=== PATIENT | female | born 1940 | race Caucasian/White ===

== ENCOUNTER → 2018-08-18 | Day surgery (SDC) | payer MEDICARE, OTHER ==
[~2018-08-18] MED LIST: LACTATED RINGERS 1,000 ML IV SCH; LIDOCAINE 1% 20 ML VIAL (10MG/ML) FOR IV START INTRADERMA PRN; LIDOCAINE 1% INJ 10MG/ML (20 ML MDV) ONE; PROPOFOL 10 MG/ML 20 ML VIAL IV ONE
[2018-08-18 10:22] VITALS: RESP 16; TEMP 97.8
--- NOTE | 2018-08-18 10:44 | P.GSHP ---
History of Present Illness H&P Date: 08/18/18 Chief Complaint: GERD, dysphagia This a 78-year-old female who presents today for EGD. She's had issues with GERD and dysphagia. Past Medical History Past Medical History: Eye Disorder, GERD/Reflux, Hyperlipidemia, Hypertension, Thyroid Disorder Additional Past Medical History / Comment(s): BILAT GLAUCOMA. HIATAL HERNIA History of Any Multi-Drug Resistant Organisms: None Reported Past Surgical History: Heart Catheterization With Stent, Joint Replacement Additional Past Surgical History / Comment(s): RT TKA. COLONOSCOPY. BILAT CATARACT SX. BILAT EYE SX FOR GLAUCOMA Past Anesthesia/Blood Transfusion Reactions: No Reported Reaction Date of Last Stent Placement:: 2004 Smoking Status: Never smoker - Past Family History Mother Family Medical History: No Reported History Medications and Allergies Home Medications Medication Instructions Recorded Confirmed Type Aspirin EC [Ecotrin Low Dose] 81 mg PO DAILY 08/14/18 08/14/18 History Calcium Citrate/Vitamin D3 1 each PO DAILY 08/14/18 08/14/18 History [Calcitrate + Vit D Caplet] Latanoprost [Xalatan 0.005%] 1 drop BOTH EYES DAILY 08/14/18 08/14/18 History Levothyroxine Sodium [Synthroid] 75 mcg PO DAILY 08/14/18 08/14/18 History Metoprolol Succinate (ER) [Toprol 50 mg PO DAILY 08/14/18 08/14/18 History Xl] Multivitamins, Thera [Multivitamin 1 each PO DAILY 08/14/18 08/14/18 History (formulary)] Pantoprazole Sodium [Protonix] 40 mg PO HS 08/14/18 08/14/18 History Pravastatin Sodium [Pravachol] 40 mg PO MOWEFR 08/14/18 08/14/18 History amLODIPine [Norvasc] 2.5 mg PO DAILY 08/14/18 08/14/18 History Allergies Allergy/AdvReac Type Severity Reaction Status Date / Time ranitidine AdvReac Itching Verified 08/18/18 10:04 Surgical - Exam Vital Signs Temp Pulse Resp BP Pulse Ox 97.8 F 65 16 181/78 99 08/18/18 10:20 08/18/18 10:20 08/18/18 10:20 08/18/18 10:20 08/18/18 10:20 - General well developed, no distress - Eyes PERRL - ENT normal pinna - Neck no masses - Respiratory normal expansion - Cardiovascular Rhythm: regular - Abdomen Abdomen: soft, non tender Assessment and Plan Assessment: GERD, dysphagia. We'll perform EGD.
--- NOTE | 2018-08-18 10:50 | P.OP ---
Date of Procedure: 08/18/18 Preoperative Diagnosis: GERD Dysphagia Postoperative Diagnosis: Mild antral gastritis Mild esophagitis Procedure(s) Performed: EGD Anesthesia: MAC Surgeon: Shade Haywood Pathology: other (Antral, esophagus) Condition: stable Disposition: PACU Description of Procedure: The patient's placed on the endoscopy table in the lateral position. She received IV sedation. The gastroscope placed oropharynx passed in the esophagus and into the stomach. Scope was then placed through the pylorus. First and second portion of the duodenum appeared normal. The scope was then brought back the antrum was mildly inflamed. A biopsies was performed. The scope was retroflexed and remainder stomach appeared normal. There is no significant hiatal hernia. The GE junction was at 39 cm the distal esophagus appeared minimally inflamed a biopsies performed. The proximal esophagus. Normal. Scope was withdrawn for patient. There is no evidence of any esophageal or gastric obstruction.
[2018-08-18 11:23] VITALS: BP 160/80; PULSE 61
--- NOTE | 2018-08-18 14:43 | NM ---
Nuclear medicine hepatobiliary scan. HISTORY: Pain. DOSAGE: The patient received 8 ounces of ensure plus and 4.7 mCi of Technetium 99m Choletec. FINDINGS: There is normal hepatic extraction. The gallbladder is seen by 45 minutes. There is bilia ry to bowel clearance by 20 minutes. Ejection fraction is 91%. IMPRESSION: 1. Normal filling of gallbladder with radiotracer. 2. Ejection fraction is 91%. This can occasionally be seen with hyperdynamic gallbladder correlate cl inically
== END | disposition home or self-care (01) ==
LOC: ORWHC2ENDO 09:50
PROVIDERS: ATTEND Surgery
DX: K29.50 Unspecified chronic gastritis without bleeding (principal); K21.0 Gastro-esophageal reflux disease with esophagitis; E07.9 Disorder of thyroid, unspecified; E78.5 Hyperlipidemia, unspecified; I25.10 Atherosclerotic heart disease of native coronary artery without angina pectoris; H40.9 Unspecified glaucoma; I10 Essential (primary) hypertension; Z79.82 Long term (current) use of aspirin; Z79.899 Other long term (current) drug therapy; Z96.651 Presence of right artificial knee joint; Z95.5 Presence of coronary angioplasty implant and graft; Z79.890 Hormone replacement therapy; Z88.8 Allergy status to other drugs, medicaments and biological substances
CPT/HCPCS: 88305; 78226; 43239; A9537; J2001; J2704

== ENCOUNTER 2018-09-01 06:23 | Day surgery (SDC) | payer MEDICARE, OTHER ==
[2018-08-28 09:33] VITALS: BMI 30.2
[~2018-09-01 06:23] MED LIST changes: +DEXAMETHASONE SOD PHOSPHATE 10 MG/ML 1 ML VIAL IV ONE; +HEPARIN SODIUM,PORCINE 5,000 UNIT/ML 1 ML VIAL SQ ONE; +HYDROmorphone 0.5 MG/0.5 ML SYRINGE IVP PRN; -LIDOCAINE 1% INJ 10MG/ML (20 ML MDV) ONE; +MIDAZOLAM 2 MG/2 ML VIAL IV PRN; +ONDANSETRON 4 MG/2 ML VIAL IVP ONE; -PROPOFOL 10 MG/ML 20 ML VIAL IV ONE; +ceFAZolin IN SWFI 2 GM/20 ML SYRINGE IVP ONE; +fentaNYL (PF) 50 MCG/ML 2 ML AMP IV PRN
[2018-09-01] MEDS ORDERED: LACTATED RINGERS 1,000 ML IV ONE ×3 (06:52→08:33)
[2018-09-01] MEDS ORDERED: GLYCOPYRROLATE 0.2 MG/ML 2 ML VIAL ONE ×2 (07:56)
[2018-09-01] MEDS ORDERED: ROCURONIUM BROMIDE 10 MG/ML 10 ML VIAL IV ONE (07:56)
[2018-09-01] MEDS ORDERED: SUCCINYLCHOLINE CHLORIDE 100 MG/5 ML SYR IV ONE (07:56)
[2018-09-01] MEDS ORDERED: PROPOFOL 10 MG/ML 20 ML VIAL IV ONE (07:56)
[2018-09-01] MEDS ORDERED: LIDOCAINE 1% INJ 10MG/ML (20 ML MDV) ONE (07:56)
[2018-09-01] MEDS ORDERED: fentaNYL (PF) 50 MCG/ML 2 ML AMP ONE (07:56)
[2018-09-01] MEDS ORDERED: NEOSTIGMINE 1 MG/ML 10 ML VIAL ONE (07:56)
[2018-09-01] MEDS ORDERED: ePHEDrine SULFATE/0.9% NACL/PF 50 MG/5 ML SYRINGE IV ONE (07:56)
--- NOTE | 2018-09-01 08:16 | P.GSHP ---
History of Present Illness H&P Date: 09/01/18 Chief Complaint: Epigastric and right upper quadrant pain This a 70-year-old female referred from Dr. Joyce Gramajo. Patient presents today for laparoscopic cholecystectomy. She's had complaints of epigastric and right quadrant pain. Her recent HIDA scan shows a hyperkinetic gallbladder consistent with biliary hypokinesis and chronic cholecystitis. Past Medical History Past Medical History: Eye Disorder, GERD/Reflux, Hyperlipidemia, Hypertension, Thyroid Disorder Additional Past Medical History / Comment(s): BILAT GLAUCOMA. HIATAL HERNIA History of Any Multi-Drug Resistant Organisms: None Reported Past Surgical History: Heart Catheterization With Stent, Joint Replacement Additional Past Surgical History / Comment(s): RIGHT KNEE REPLACEMENT. COLONOSCOPY. BILAT CATARACT SX. BILAT EYE SX FOR GLAUCOMA Past Anesthesia/Blood Transfusion Reactions: No Reported Reaction Date of Last Stent Placement:: 2004 Past Psychological History: No Psychological Hx Reported Smoking Status: Never smoker Past Alcohol Use History: None Reported Past Drug Use History: None Reported - Past Family History Mother Family Medical History: No Reported History Medications and Allergies Home Medications Medication Instructions Recorded Confirmed Type Aspirin EC [Ecotrin Low Dose] 81 mg PO DAILY 08/14/18 08/28/18 History Calcium Citrate/Vitamin D3 1 each PO DAILY 08/14/18 08/28/18 History [Calcitrate + Vit D Caplet] Latanoprost [Xalatan 0.005%] 1 drop BOTH EYES DAILY 08/14/18 08/28/18 History Levothyroxine Sodium [Synthroid] 75 mcg PO QAM 08/14/18 08/28/18 History Metoprolol Succinate (ER) [Toprol 50 mg PO 1200 08/14/18 08/28/18 History Xl] Multivitamins, Thera [Multivitamin 1 each PO DAILY 08/14/18 08/28/18 History (formulary)] Pantoprazole Sodium [Protonix] 40 mg PO HS 08/14/18 08/28/18 History Pravastatin Sodium [Pravachol] 40 mg PO MOWEFR 08/14/18 08/28/18 History amLODIPine [Norvasc] 2.5 mg PO 1200 08/14/18 08/28/18 History Allergies Allergy/AdvReac Type Severity Reaction Status Date / Time ranitidine AdvReac Itching Verified 01/24/19 09:18 Surgical - Exam Vital Signs Temp Pulse Resp BP Pulse Ox 97.8 F 61 18 173/74 95 09/01/18 06:39 09/01/18 06:39 09/01/18 06:39 09/01/18 06:39 09/01/18 06:39 - General well developed, no distress - Eyes PERRL - ENT normal pinna - Neck no masses - Cardiovascular Rhythm: regular - Abdomen Abdomen: soft, non tender Assessment and Plan Assessment: When quadrant pain Chronically says We'll perform laparoscopic cholecystectomy.
[2018-09-01] MEDS ORDERED: BUPIVACAIN-EPI 0.5%-1:200,000 30 ML VIAL SQ ONE (08:32)
[2018-09-01 09:01] VITALS: TEMP 97.3
--- NOTE | 2018-09-01 09:22 | P.OP ---
Date of Procedure: 09/01/18 Preoperative Diagnosis: Cholecystitis Postoperative Diagnosis: Cholecystitis Procedure(s) Performed: Laparoscopic cholecystectomy Anesthesia: MELANI Surgeon: Shade Haywood Estimated Blood Loss (ml): 5 Pathology: other (Gallbladder) Condition: stable Disposition: PACU Description of Procedure: The patient was placed on the operating table. The patient received a general endotracheal tube anesthesia. The patients abdomen was prepped and draped in the usual sterile fashion. Through an infraumbilical stab incision, the fascia of the anterior abdominal wall was grasped with a pair of Kochers and then the Veress needle was placed in the peritoneal cavity. Position of the Veress needle was confirmed with positive drop test. The abdomen was then insufflated. After adequate insufflation, the 10 mm trocar was placed in the peritoneal cavity. Following this the laparoscope was placed in the peritoneal cavity. The patient was placed in the head-up, right side up position and then a 5 mm trocar was placed in the right lateral and right subcostal position under direct visualization. A 8 mm trocar was placed in the epigastric position. The gallbladder was grasped in the fundus and infundibulum. Traction on the gallbladder was placed in the lateral and the cephalad positions. The triangle of Calot was visualized.. The cystic duct was bluntly dissected until the union of the cystic duct and common bile duct was seen. The cystic duct was then divided and sealed with the Harmonic scissors. A PDS Endoloop was then placed throughout the cystic duct stump. The cystic artery divided and sealed with the Harmonic scissors. The gallbladder was then removed from the liver bed using Harmonic scissors. The gallbladder was then extracted through the epigastric port site. Operative field was checked for any bleeding spots and Harmonic scissors was used to coagulate the liver bed. The abdomen was irrigated. The trocars were removed. The skin was closed using interrupted 3-0 Vicryl suture. Dermabond dressing were applied. The patient tolerated the procedure well.
[2018-09-01 10:47] VITALS: RESP 16
[2018-09-01 11:00] VITALS: BP 121/78; PULSE 63
== END 2018-09-01 11:41 | disposition home or self-care (01) ==
LOC: OR 06:23
PROVIDERS: ATTEND Surgery
DX: K80.10 Calculus of gallbladder with chronic cholecystitis without obstruction (principal); K29.70 Gastritis, unspecified, without bleeding; I25.10 Atherosclerotic heart disease of native coronary artery without angina pectoris; K21.9 Gastro-esophageal reflux disease without esophagitis; I10 Essential (primary) hypertension; E78.5 Hyperlipidemia, unspecified; E07.9 Disorder of thyroid, unspecified; Z79.82 Long term (current) use of aspirin; Z79.899 Other long term (current) drug therapy; Z96.651 Presence of right artificial knee joint; Z88.8 Allergy status to other drugs, medicaments and biological substances; Z95.5 Presence of coronary angioplasty implant and graft; Z79.890 Hormone replacement therapy
CPT/HCPCS: 47562; J1644; J1100; J2710; J2405; J2001; J3010; J0330; J2704; J0690; 88304

== ENCOUNTER 2019-03-06 19:35 | Inpatient (IN) | payer MEDICARE, OTHER ==
[2019-03-06 21:01] LABS: HCT 43.7 % (34.0-46.0); HGB 14.4 gm/dL (11.4-16.0); MCH 30.2 pg (25.0-35.0); MCHC 32.9 g/dL (31.0-37.0); MCV 91.8 fL (80.0-100.0); Mean Platelet Volume 8.6; Platelet Count 241 k/uL (150-450); RBC 4.76 m/uL (3.80-5.40); RDW 15.2 % (11.5-15.5); WBC 10.6 k/uL (3.8-10.6)
[2019-03-06 21:05] LABS: Albumin 3.8 g/dL (3.5-5.0); Calcium 9.6 mg/dL (8.4-10.2); Potassium 4.2 mmol/L (3.5-5.1); Total Bilirubin 0.8 mg/dL (0.2-1.3)
[2019-03-06 21:15] LABS: INR 0.9 (<1.2); Prothrombin Time 9.8 sec (9.0-12.0)
[2019-03-06 21:21] LABS: Partial Thromboplastin Time 21.5 sec (22.0-30.0)
[2019-03-06 21:25] LABS: Eosinophils # (M) 2.76 k/uL (0-0.7); Large Platelets Present; Lymphocytes # (M) 2.86 k/uL (1.0-4.8); Monocytes # (M) 0.85 k/uL (0-1.0); Neutrophils % (M) 39 %; Nucleated Red Blood Cells 0 /100 WBC (0-0); Total Cells Counted 100
--- NOTE | 2019-03-06 22:21 | CT ---
EXAM: CT Abdomen and Pelvis With Intravenous Contrast CLINICAL HISTORY: rectal bleeding TECHNIQUE: Axial computed tomography images of the abdomen and pelvis with intravenous contrast. CTDI is 0.085, 0.085, 8.7, 9.1 mGy and DLP is 780. 9 mGy-cm. This CT exam was performed using one or more of the following dose reduction techniques: automated exposure control, adjustment of the mA and/or kV according to patient size, and/or use of iterative reconstruction technique. COMPARISON: No relevant prior studies available. FINDINGS: Lung bases: Unremarkable. Mediastinum: Small hiatal hernia. ABDOMEN: Liver: Liver is upper limits of normal in size. Gallbladder and bile ducts: Gallbladder is absent. Pancreas: Unremarkable. Spleen: Unremarkable. Adrenals: Unremarkable. Kidneys and ureters: Small fluid attenuating right renal lesion, likely cysts. No hydronephrosis. Stomach and bowel: Mild haziness surrounding the underdistended descending colon is compatible with nonspecific colitis. Small bowel is nondilated. Colonic diverticulosis without focal inflammatory change. PELVIS: Appendix: Not identified. No pericecal inflammatory change. Bladder: Unremarkable. Reproductive: Small calcified uterine fibroid. ABDOMEN and PELVIS: Intraperitoneal space: Unremarkable. No free air. Bones/joints: No acute osseous abnormality. Degenerative changes of the spine. Soft tissues: Small fat-containing periumbilical hernia. Vasculature: Aortic atherosclerosis. No abdominal aortic aneurysm. Lymph nodes: Unremarkable. IMPRESSION: Mild haziness surrounding the underdistended descending colon is compatible with nonspecific colitis.
--- NOTE | 2019-03-06 23:21 | ED ---
Nausea/Vomiting/Diarrhea HPI - General Chief complaint: Nausea/Vomiting/Diarrhea Stated complaint: rectal bleeding Time Seen by Provider: 03/06/19 19:45 Source: patient Mode of arrival: ambulatory Limitations: no limitations - History of Present Illness Initial comments: Patient is a 78-year-old female presents to the emergency room with report of bright red blood per rectum. She reports that around 5 PM yesterday she began having abdominal cramping. She did go to the bathroom and had multiple episodes of bright red blood within the toilet bowl. No history of similar in the past. She isn't taking anything for her pain. She did awake this morning and continued to have multiple episodes of bright red blood in the bowl. She admits to associated nausea but no vomiting. She denies any abnormal vaginal bleeding or discharge. She denies any dysuria, hematuria or difficulty voiding. She denies any constipation or melanotic stools. States that she is strictly passing blood. She last had a colonoscopy in 2011 and it was normal. She does admit to a history of diverticulosis. She is not on any blood thinners. Denies any syncope or presyncope. No fevers or chills. There are no other alleviating, precipitating or modifying factors. - Related Data Home Medications Medication Instructions Recorded Confirmed Calcium Citrate/Vitamin D3 1 tab PO DAILY 08/14/18 03/06/19 [Calcitrate + Vit D Caplet] Latanoprost [Xalatan 0.005%] 1 drop BOTH EYES HS 08/14/18 03/06/19 Levothyroxine Sodium [Synthroid] 75 mcg PO QAM 08/14/18 03/06/19 Metoprolol Succinate (ER) [Toprol 50 mg PO DAILY 08/14/18 03/06/19 XL] Multivitamins, Thera [Multivitamin 1 tab PO DAILY 08/14/18 03/06/19 (formulary)] Pravastatin Sodium [Pravachol] 40 mg PO MOWEFR 08/14/18 03/06/19 amLODIPine [Norvasc] 2.5 mg PO DAILY 08/14/18 03/06/19 Timolol 0.5% Ophth Soln [Timoptic 1 drop BOTH EYES DAILY 03/06/19 03/06/19 0.5% Ophth Soln] Previous Rx's Medication Instructions Recorded Amoxic-Pot Clav 875-125Mg 1 tab PO BID 4 Days #8 tab 03/09/19 [Augmentin 875-125] Aspirin EC [Ecotrin Low Dose] 81 mg PO DAILY #0 03/09/19 Pantoprazole Sodium [Protonix] 40 mg PO DAILY #30 tablet. 03/09/19 metroNIDAZOLE [Flagyl] 500 mg PO Q8HR #12 tab 03/09/19 Allergies Allergy/AdvReac Type Severity Reaction Status Date / Time ranitidine AdvReac Itching Verified 03/06/19 20:26 Review of Systems ROS Statement: Those systems with pertinent positive or pertinent negative responses have been documented in the HPI. ROS Other: All systems not noted in ROS Statement are negative. Past Medical History Past Medical History: Eye Disorder, GERD/Reflux, Hyperlipidemia, Hypertension, Thyroid Disorder Additional Past Medical History / Comment(s): BILAT GLAUCOMA. HIATAL HERNIA History of Any Multi-Drug Resistant Organisms: None Reported Past Surgical History: Heart Catheterization With Stent, Joint Replacement Additional Past Surgical History / Comment(s): RIGHT KNEE REPLACEMENT. COLONOSCOPY. BILAT CATARACT SX. BILAT EYE SX FOR GLAUCOMA Past Anesthesia/Blood Transfusion Reactions: No Reported Reaction Date of Last Stent Placement:: 2004 Past Psychological History: No Psychological Hx Reported Smoking Status: Never smoker Past Alcohol Use History: None Reported Past Drug Use History: None Reported - Past Family History Mother Family Medical History: No Reported History General Exam Limitations: no limitations General appearance: alert, in no apparent distress Head exam: Present: atraumatic, normocephalic, normal inspection Eye exam: Present: normal appearance, PERRL, EOMI. Absent: scleral icterus, co njunctival injection, periorbital swelling ENT exam: Present: normal exam, mucous membranes moist Neck exam: Present: normal inspection. Absent: tenderness, meningismus, lymphadenopathy Respiratory exam: Present: normal lung sounds bilaterally. Absent: respiratory distress, wheezes, rales, rhonchi, stridor Cardiovascular Exam: Present: regular rate, normal rhythm, normal heart sounds. Absent: systolic murmur, diastolic murmur, rubs, gallop, clicks GI/Abdominal exam: Present: soft, normal bowel sounds. Absent: distended, tenderness, guarding, rebound, rigid Rectal exam: Present: heme (+) stool, bloody stool Extremities exam: Present: normal inspection, full ROM, normal capillary refill. Absent: tenderness, pedal edema, joint swelling, calf tenderness Back exam: Present: normal inspection Neurological exam: Present: alert, oriented X3, CN II-XII intact Psychiatric exam: Present: normal affect, normal mood Skin exam: Present: warm, dry, intact, normal color. Absent: rash Course Vital Signs 03/06/19 03/06/19 03/07/19 19:40 22:57 00:21 Temperature 98.4 F 98.7 F Pulse Rate 75 68 72 Respiratory 18 18 18 Rate Blood Pressure 133/84 144/67 133/82 O2 Sat by Pulse 95 97 95 Oximetry Procedures - Stool Hemoccult Hemoccult result: positive Medical Decision Making - Medical Decision Making Upon arrival the patient is placed into room 18. She is hooked to continuous pulse ox and cardiac monitoring. A thorough history and physical exam was performed. Peripheral IV was established. I did offer something for pain control however the patient refused. I did recommend laboratory studies and a CT of the patient's abdomen and pelvis. A rectal exam was performed which did demonstrate gross blood. Upon return of the results I did discuss them with the patient. I did recommend hospital admission to continue to trend the patient's hemoglobin which the patient did agree. Blood cultures were obtained. I did start her on Rocephin and Flagyl. The patient will be admitted to Dr. Gonsalez. I did call and discuss the case with him and he did accept the admission. He requests that I consult Dr. Merchant. She was made nothing by mouth. I did order Protonix and antiemetics. The patient remained in stable condition was was transported to the floor in hemodynamically stable condition. - Differential Diagnosis acute GIB, internal hemorrhoids, diverticulitis - Lab Data Result diagrams: 03/08/19 08:54 03/06/19 20:41 Lab Results 03/06/19 03/06/19 03/06/19 Range/Units 20:41 20:41 20:41 WBC 10.6 (3.8-10.6) k/uL RBC 4.76 (3.80-5.40) m/uL Hgb 14.4 (11.4-16.0) gm/dL Hct 43.7 (34.0-46.0) % MCV 91.8 (80.0-100.0) fL MCH 30.2 (25.0-35.0) pg MCHC 32.9 (31.0-37.0) g/dL RDW 15.2 (11.5-15.5) % Plt Count 241 (150-450) k/uL Neutrophils % (Manual) 39 % Lymphocytes % (Manual) 27 % Monocytes % (Manual) 8 % Eosinophils % (Manual) 26 % Neutrophils # (Manual) 4.13 (1.3-7.7) k/uL Lymphocytes # (Manual) 2.86 (1.0-4.8) k/uL Monocytes # (Manual) 0.85 (0-1.0) k/uL Eosinophils # (Manual) 2.76 H (0-0.7) k/uL Nucleated RBCs 0 (0-0) /100 WBC Manual Slide Review Performed Large Platelets Present PT (9.0-12.0) sec INR (<1.2) APTT (22.0-30.0) sec Sodium 140 (137-145) mmol/L Potassium 4.2 (3.5-5.1) mmol/L Chloride 105 (98-107) mmol/L Carbon Dioxide 26 (22-30) mmol/L Anion Gap 9 mmol/L BUN 19 H (7-17) mg/dL Creatinine 0.77 (0.52-1.04) mg/dL Est GFR (CKD-EPI)AfAm 86 (>60 ml/min/1.73 sqM) Est GFR (CKD-EPI)NonAf 74 (>60 ml/min/1.73 sqM) Glucose 98 (74-99) mg/dL Plasma Lactic Acid Kong 1.3 (0.7-2.0) mmol/L Calcium 9.6 (8.4-10.2) mg/dL Magnesium 2.0 (1.6-2.3) mg/dL Total Bilirubin 0.8 (0.2-1.3) mg/dL AST 32 (14-36) U/L ALT 18 (9-52) U/L Alkaline Phosphatase 78 (38-126) U/L Total Protein 7.0 (6.3-8.2) g/dL Albumin 3.8 (3.5-5.0) g/dL Lipase 93 (23-300) U/L Urine Color Urine Appearance (Clear) Urine pH (5.0-8.0) Ur Specific [place] (1.001-1.035) Urine Protein (Negative) Urine Glucose (UA) (Negative) Urine Ketones (Negative) Urine Blood (Negative) Urine Nitrite (Negative) Urine Bilirubin (Negative) Urine Urobilinogen (<2.0) mg/dL Ur Leukocyte Esterase (Negative) Urine RBC (0-5) /hpf Urine WBC (0-5) /hpf Ur Squamous Epith Cells (0-4) /hpf Urine Mucus (None) /hpf Stool Occult Blood (Negative) Blood Type Blood Type Confirm Blood Type Recheck Antibody Screen Spec Expiration Date 03/06/19 03/06/19 03/06/19 Range/Units 20:41 20:41 20:41 WBC (3.8-10.6) k/uL RBC (3.80-5.40) m/uL Hgb (11.4-16.0) gm/dL Hct (34.0-46.0) % MCV (80.0-100.0) fL MCH (25.0-35.0) pg MCHC (31.0-37.0) g/dL RDW (11.5-15.5) % Plt Count (150-450) k/uL Neutrophils % (Manual) % Lymphocytes % (Manual) % Monocytes % (Manual) % Eosinophils % (Manual) % Neutrophils # (Manual) (1.3-7.7) k/uL Lymphocytes # (Manual) (1.0-4.8) k/uL Monocytes # (Manual) (0-1.0) k/uL Eosinophils # (Manual) (0-0.7) k/uL Nucleated RBCs (0-0) /100 WBC Manual Slide Review Large Platelets PT 9.8 (9.0-12.0) sec INR 0.9 (<1.2) APTT 21.5 L (22.0-30.0) sec Sodium (137-145) mmol/L Potassium (3.5-5.1) mmol/L Chloride (98-107) mmol/L Carbon Dioxide (22-30) mmol/L Anion Gap mmol/L BUN (7-17) mg/dL Creatinine (0.52-1.04) mg/dL Est GFR (CKD-EPI)AfAm (>60 ml/min/1.73 sqM) Est GFR (CKD-EPI)NonAf (>60 ml/min/1.73 sqM) Glucose (74-99) mg/dL Plasma Lactic Acid Kong (0.7-2.0) mmol/L Calcium (8.4-10.2) mg/dL Magnesium (1.6-2.3) mg/dL Total Bilirubin (0.2-1.3) mg/dL AST (14-36) U/L ALT (9-52) U/L Alkaline Phosphatase (38-126) U/L Total Protein (6.3-8.2) g/dL Albumin (3.5-5.0) g/dL Lipase (23-300) U/L Urine Color Urine Appearance (Clear) Urine pH (5.0-8.0) Ur Specific [place] (1.001-1.035) Urine Protein (Negative) Urine Glucose (UA) (Negative) Urine Ketones (Negative) Urine Blood (Negative) Urine Nitrite (Negative) Urine Bilirubin (Negative) Urine Urobilinogen (<2.0) mg/dL Ur Leukocyte Esterase (Negative) Urine RBC (0-5) /hpf Urine WBC (0-5) /hpf Ur Squamous Epith Cells (0-4) /hpf Urine Mucus (None) /hpf Stool Occult Blood Positive H (Negative) Blood Type A Positive Blood Type Confirm Blood Type Recheck CABO Indicated Antibody Screen NEGATIVE Spec Expiration Date 03/09/2019 - 234003/06/19 03/06/19 Range/Units 21:26 22:58 WBC (3.8-10.6) k/uL RBC (3.80-5.40) m/uL Hgb (11.4-16.0) gm/dL Hct (34.0-46.0) % MCV (80.0-100.0) fL MCH (25.0-35.0) pg MCHC (31.0-37.0) g/dL RDW (11.5-15.5) % Plt Count (150-450) k/uL Neutrophils % (Manual) % Lymphocytes % (Manual) % Monocytes % (Manual) % Eosinophils % (Manual) % Neutrophils # (Manual) (1.3-7.7) k/uL Lymphocytes # (Manual) (1.0-4.8) k/uL Monocytes # (Manual) (0-1.0) k/uL Eosinophils # (Manual) (0-0.7) k/uL Nucleated RBCs (0-0) /100 WBC Manual Slide Review Large Platelets PT (9.0-12.0) sec INR (<1.2) APTT (22.0-30.0) sec Sodium (137-145) mmol/L Potassium (3.5-5.1) mmol/L Chloride (98-107) mmol/L Carbon Dioxide (22-30) mmol/L Anion Gap mmol/L BUN (7-17) mg/dL Creatinine (0.52-1.04) mg/dL Est GFR (CKD-EPI)AfAm (>60 ml/min/1.73 sqM) Est GFR (CKD-EPI)NonAf (>60 ml/min/1.73 sqM) Glucose (74-99) mg/dL Plasma Lactic Acid Kong (0.7-2.0) mmol/L Calcium (8.4-10.2) mg/dL Magnesium (1.6-2.3) mg/dL Total Bilirubin (0.2-1.3) mg/dL AST (14-36) U/L ALT (9-52) U/L Alkaline Phosphatase (38-126) U/L Total Protein (6.3-8.2) g/dL Albumin (3.5-5.0) g/dL Lipase (23-300) U/L Urine Color Yellow Urine Appearance Clear (Clear) Urine pH 7.0 (5.0-8.0) Ur Specific [place] >1.050 H (1.001-1.035) Urine Protein Negative (Negative) Urine Glucose (UA) Negative (Negative) Urine Ketones Negative (Negative) Urine Blood Negative (Negative) Urine Nitrite Negative (Negative) Urine Bilirubin Negative (Negative) Urine Urobilinogen <2.0 (<2.0) mg/dL Ur Leukocyte Esterase Moderate H (Negative) Urine RBC 3 (0-5) /hpf Urine WBC 7 H (0-5) /hpf Ur Squamous Epith Cells 7 H (0-4) /hpf Urine Mucus Rare H (None) /hpf Stool Occult Blood (Negative) Blood Type Blood Type Confirm A Positive Blood Type Recheck Antibody Screen Spec Expiration Date Disposition Clinical Impression: Acute colitis, Rectal bleeding Disposition: ADMITTED IP TO THIS [facility] Condition: Stable Is patient prescribed a controlled substance at d/c from ED?: No Decision to Admit Reason: Admit from EC Decision Date: 03/06/19 Decision Time: 23:22
[2019-03-06] MEDS ORDERED: ONDANSETRON 4 MG/2 ML VIAL IVP PRN (23:24)
[2019-03-06] MEDS ORDERED: NALOXONE 0.4 MG/ML 1 ML VIAL IV PRN (23:24)
[2019-03-06] MEDS ORDERED: cefTRIAXone IN SWFI 1,000 MG/10 ML SYRINGE IVP STA (23:25)
[2019-03-06] MEDS ORDERED: metroNIDAZOLE-NS PMX 500 MG in SALINE 1 100ML.BAG IVPB STA (23:26)
[2019-03-06 23:29] LABS: Appearance,Urine Clear (Clear); Bilirubin,Urine Negative (Negative); Blood,Urine Negative (Negative); Color,Urine Yellow; Glucose,Urine (UA) Negative (Negative); Ketones,Urine Negative (Negative); Leukocyte Esterase,Urine Moderate (Negative); Mucus,Urine Rare /hpf; Nitrite,Urine Negative (Negative); Protein,Urine Negative (Negative); RBC,Urine 3 /hpf (0-5); Squamous Epithelial Cell,Urine 7 /hpf (0-4); Urobilinogen,Urine <2.0 mg/dL (<2.0)
[2019-03-06] MEDS ORDERED: cefTRIAXone IN SWFI 1,000 MG/10 ML SYRINGE IVP SCH (23:30)
[2019-03-06 23:54] LABS: Specific Gravity,Urine >1.050 (1.001-1.035)
[2019-03-07] MEDS: PANTOPRAZOLE 40 MG/10 ML VIAL IV SCH ×2 (00:06→10:01)
[2019-03-07] MEDS: LEVOTHYROXINE 75 MCG TAB PO SCH (06:17)
--- NOTE | 2019-03-07 08:54 | P.GSCN ---
History of Present Illness Consult date: 03/07/19 Reason for Consult: Rectal bleeding History of present illness: This is a 78-year-old female who is minimal hospital last night. Patient compl ains of rectal bleeding. She describes bloody bowel movements. She states she's had no further bloody bowel movements this morning. Her last colonoscopy was approximately 9 years ago. CAT scan performed yesterday shows evidence of possible nonspecific colitis of the descending colon Past Medical History Past Medical History: Eye Disorder, GERD/Reflux, Hyperlipidemia, Hypertension, Thyroid Disorder Additional Past Medical History / Comment(s): BILAT GLAUCOMA. HIATAL HERNIA History of Any Multi-Drug Resistant Organisms: None Reported Past Surgical History: Heart Catheterization With Stent, Joint Replacement Additional Past Surgical History / Comment(s): RIGHT KNEE REPLACEMENT. COLONOSCOPY. BILAT CATARACT SX. BILAT EYE SX FOR GLAUCOMA Past Anesthesia/Blood Transfusion Reactions: No Reported Reaction Date of Last Stent Placement:: 2004 Past Psychological History: No Psychological Hx Reported Smoking Status: Never smoker Past Alcohol Use History: None Reported Past Drug Use History: None Reported - Past Family History Mother Family Medical History: No Reported History Medications and Allergies Home Medications Medication Instructions Recorded Confirmed Type Aspirin EC [Ecotrin Low Dose] 81 mg PO DAILY 08/14/18 03/06/19 History Calcium Citrate/Vitamin D3 1 tab PO DAILY 08/14/18 03/06/19 History [Calcitrate + Vit D Caplet] Latanoprost [Xalatan 0.005%] 1 drop BOTH EYES HS 08/14/18 03/06/19 History Levothyroxine Sodium [Synthroid] 75 mcg PO QAM 08/14/18 03/06/19 History Metoprolol Succinate (ER) [Toprol 50 mg PO DAILY 08/14/18 03/06/19 History Xl] Multivitamins, Thera [Multivitamin 1 tab PO DAILY 08/14/18 03/06/19 History (formulary)] Pravastatin Sodium [Pravachol] 40 mg PO MOWEFR 08/14/18 03/06/19 History amLODIPine [Norvasc] 2.5 mg PO DAILY 08/14/18 03/06/19 History Timolol 0.5% Ophth Soln [Timoptic 1 drop BOTH EYES DAILY 03/06/19 03/06/19 History 0.5% Ophth Soln] Allergies Allergy/AdvReac Type Severity Reaction Status Date / Time ranitidine AdvReac Itching Verified 03/06/19 20:26 Surgical - Exam Vital Signs Temp Pulse Resp BP Pulse Ox 98.4 F 75 18 133/84 95 03/06/19 19:40 03/06/19 19:40 03/06/19 19:40 03/06/19 19:40 03/06/19 19:40 - General well developed, well nourished, no distress - Eyes PERRL - ENT normal pinna - Neck no masses - Respiratory normal expansion - Cardiovascular Rhythm: regular - Abdomen Abdomen: soft, non tender Hernia: umbilical Results - Labs 03/06/19 20:41 03/06/19 20:41 Abnormal Lab Results - Last 24 Hours (Table) 03/06/19 03/06/19 03/06/19 Range/Units 20:41 20:41 20:41 Eosinophils # (Manual) 2.76 H (0-0.7) k/uL APTT (22.0-30.0) sec BUN 19 H (7-17) mg/dL Ur Specific [place] (1.001-1.035) Ur Leukocyte Esterase (Negative) Urine WBC (0-5) /hpf Ur Squamous Epith Cells (0-4) /hpf Urine Mucus (None) /hpf Stool Occult Blood Positive H (Negative) 03/06/19 03/06/19 Range/Units 20:41 22:58 Eosinophils # (Manual) (0-0.7) k/uL APTT 21.5 L (22.0-30.0) sec BUN (7-17) mg/dL Ur Specific [place] >1.050 H (1.001-1.035) Ur Leukocyte Esterase Moderate H (Negative) Urine WBC 7 H (0-5) /hpf Ur Squamous Epith Cells 7 H (0-4) /hpf Urine Mucus Rare H (None) /hpf Stool Occult Blood (Negative) Diabetes panel 03/06/19 Range/Units 20:41 Sodium 140 (137-145) mmol/L Potassium 4.2 (3.5-5.1) mmol/L Chloride 105 (98-107) mmol/L Carbon Dioxide 26 (22-30) mmol/L BUN 19 H (7-17) mg/dL Creatinine 0.77 (0.52-1.04) mg/dL Glucose 98 (74-99) mg/dL Calcium 9.6 (8.4-10.2) mg/dL AST 32 (14-36) U/L ALT 18 (9-52) U/L Alkaline Phosphatase 78 (38-126) U/L Total Protein 7.0 (6.3-8.2) g/dL Albumin 3.8 (3.5-5.0) g/dL Calcium panel 03/06/19 Range/Units 20:41 Calcium 9.6 (8.4-10.2) mg/dL Albumin 3.8 (3.5-5.0) g/dL Pituitary panel 03/06/19 Range/Units 20:41 Sodium 140 (137-145) mmol/L Potassium 4.2 (3.5-5.1) mmol/L Chloride 105 (98-107) mmol/L Carbon Dioxide 26 (22-30) mmol/L BUN 19 H (7-17) mg/dL Creatinine 0.77 (0.52-1.04) mg/dL Glucose 98 (74-99) mg/dL Calcium 9.6 (8.4-10.2) mg/dL Adrenal panel 03/06/19 Range/Units 20:41 Sodium 140 (137-145) mmol/L Potassium 4.2 (3.5-5.1) mmol/L Chloride 105 (98-107) mmol/L Carbon Dioxide 26 (22-30) mmol/L BUN 19 H (7-17) mg/dL Creatinine 0.77 (0.52-1.04) mg/dL Glucose 98 (74-99) mg/dL Calcium 9.6 (8.4-10.2) mg/dL Total Bilirubin 0.8 (0.2-1.3) mg/dL AST 32 (14-36) U/L ALT 18 (9-52) U/L Alkaline Phosphatase 78 (38-126) U/L Total Protein 7.0 (6.3-8.2) g/dL Albumin 3.8 (3.5-5.0) g/dL Assessment and Plan Assessment: Lower GI bleed. Possible descending colon colitis. Patient will be observed. She'll undergo colonoscopy on Saturday. She may be discharged home tomorrow if she has no further bleeding.
[2019-03-07] MEDS: SODIUM CHLORIDE 0.9% 1,000 ML IV SCH ×2 (09:52)
[2019-03-07] MEDS: metroNIDAZOLE-NS PMX 500 MG in SALINE 1 100ML.BAG IVPB SCH ×2 (09:54→16:31)
[2019-03-07] MEDS: amLODIPine 2.5 MG TAB PO SCH (10:00)
[2019-03-07] MEDS: METOPROLOL SUCCINATE (ER) 50 MG TAB.ER.24H PO SCH (10:00)
[2019-03-07] MEDS: TIMOLOL 0.5% OPHTH DROPS 5 ML BTL BOTH EYES SCH (10:02)
--- NOTE | 2019-03-07 11:03 | P.HPIM ---
History of Present Illness H&P Date: 03/07/19 Chief Complaint: Rectal bleed Jazmin Castellon is a 78 yo F with PMH significant for HTN, HLD, OA, GERD. She presented to [facility] ED after passing a multiple bloody bowel movements over the past 2 days. She states on noticed abdominal cramping and discomfort which persisted for about an hour, then passed loose bloody stool. She had another episode yesterday morning so came in to the ED. She denies loss of appetite, fever, chills, nausea or vomiting. No melena. Her bowel movements at baseline are every 1-2 days and regular. She last had colonoscopy in 2011 which was normal with the exception of diverticulosis. In the ED vitals stable, WBC 10, FOBT positive, CT abd/pelvis with nonspecific colitis of descending colon. Pt has had no further bloody stools since admission. Review of Systems All systems: negative Constitutional: Reports malaise, Denies chills, Denies fever Eyes: denies blurred vision, denies pain Ears, nose, mouth and throat: Denies headache, Denies sore throat Cardiovascular: Denies chest pain, Denies shortness of breath Respiratory: Denies cough Gastrointestinal: Reports hematochezia, Reports loss of appetite, Denies abdominal pain, Denies constipation, Denies diarrhea, Denies melena, Denies nausea, Denies vomiting Genitourinary: Denies dysuria, Denies hematuria Musculoskeletal: Denies myalgias Integumentary: Denies pruritus, Denies rash Neurological: Denies numbness, Denies weakness Psychiatric: Denies anxiety, Denies depression Endocrine: Denies fatigue, Denies weight change Past Medical History Past Medical History: Eye Disorder, GERD/Reflux, Hyperlipidemia, Hypertension, Thyroid Disorder Additional Past Medical History / Comment(s): BILAT GLAUCOMA. HIATAL HERNIA History of Any Multi-Drug Resistant Organisms: None Reported Past Surgical History: Heart Catheterization With Stent, Joint Replacement Additional Past Surgical History / Comment(s): RIGHT KNEE REPLACEMENT. COLONOSCOPY. BILAT CATARACT SX. BILAT EYE SX FOR GLAUCOMA Past Anesthesia/Blood Transfusion Reactions: No Reported Reaction Date of Last Stent Placement:: 2004 Past Psychological History: No Psychological Hx Reported Smoking Status: Never smoker Past Alcohol Use History: None Reported Past Drug Use History: None Reported - Past Family History Mother Family Medical History: No Reported History Medications and Allergies Home Medications Medication Instructions Recorded Confirmed Type Aspirin EC [Ecotrin Low Dose] 81 mg PO DAILY 08/14/18 03/06/19 History Calcium Citrate/Vitamin D3 1 tab PO DAILY 08/14/18 03/06/19 History [Calcitrate + Vit D Caplet] Latanoprost [Xalatan 0.005%] 1 drop BOTH EYES HS 08/14/18 03/06/19 History Levothyroxine Sodium [Synthroid] 75 mcg PO QAM 08/14/18 03/06/19 History Metoprolol Succinate (ER) [Toprol 50 mg PO DAILY 08/14/18 03/06/19 History Xl] Multivitamins, Thera [Multivitamin 1 tab PO DAILY 08/14/18 03/06/19 History (formulary)] Pravastatin Sodium [Pravachol] 40 mg PO MOWEFR 08/14/18 03/06/19 History amLODIPine [Norvasc] 2.5 mg PO DAILY 08/14/18 03/06/19 History Timolol 0.5% Ophth Soln [Timoptic 1 drop BOTH EYES DAILY 03/06/19 03/06/19 H istory 0.5% Ophth Soln] Allergies Allergy/AdvReac Type Severity Reaction Status Date / Time ranitidine AdvReac Itching Verified 03/06/19 20:26 Physical Exam Vitals: Vital Signs Temp Pulse Pulse Resp BP BP Pulse Ox 03/07/19 07:03 98.1 F 69 16 145/80 94 L 03/07/19 01:14 97.9 F 65 18 126/73 95 03/07/19 00:21 98.7 F 72 18 133/82 95 03/06/19 22:57 68 18 144/67 97 03/06/19 19:40 98.4 F 75 18 133/84 95 Intake and Output 03/06/19 03/07/19 03/07/19 22:59 06:59 14:59 Other: Weight 70.307 kg Constitutional: well developed, well nourished, no apparent distress Head: normocephalic, atraumatic ENT: TMs clear, posterior pharynx without erythema Neck: supple, no thyromegaly or JVD Lungs: normal respiratory effort, no rales, rhonchi or wheezing CV: regular rate and rhythm, no murmur. Pulses 2+ Abd: soft, non distended, no organomegaly. LLQ TTP Ext: no cyanosis, clubbing, or edema Neuro: alert and oriented x3, CN II-XII intact Skin: warm and dry Results CBC & Chem 7: 03/06/19 20:41 03/06/19 20:41 Labs: Abnormal Lab Results - Last 24 Hours (Table) 03/06/19 03/06/19 03/06/19 Range/Units 20:41 20:41 20:41 Eosinophils # (Manual) 2.76 H (0-0.7) k/uL APTT (22.0-30.0) sec BUN 19 H (7-17) mg/dL Ur Specific [place] (1.001-1.035) Ur Leukocyte Esterase (Negative) Urine WBC (0-5) /hpf Ur Squamous Epith Cells (0-4) /hpf Urine Mucus (None) /hpf Stool Occult Blood Positive H (Negative) 03/06/19 03/06/19 Range/Units 20:41 22:58 Eosinophils # (Manual) (0-0.7) k/uL APTT 21.5 L (22.0-30.0) sec BUN (7-17) mg/dL Ur Specific [place] >1.050 H (1.001-1.035) Ur Leukocyte Esterase Moderate H (Negative) Urine WBC 7 H (0-5) /hpf Ur Squamous Epith Cells 7 H (0-4) /hpf Urine Mucus Rare H (None) /hpf Stool Occult Blood (Negative) Thrombosis Risk Factor Assmnt - Choose All That Apply Each Risk Factor Represents 3 Points: Age 75 years or older Thrombosis Risk Factor Assessment Total Risk Factor Score: 3 Thrombosis Risk Factor Assessment Level: Moderate Risk Assessment and Plan (1) Acute colitis Current Visit: Yes Status: Acute Code(s): K52.9 - NONINFECTIVE GASTROENTERITIS AND COLITIS, UNSPECIFIED SNOMED Code(s): 16818138 (2) Rectal bleeding Current Visit: Yes Status: Acute Code(s): K62.5 - HEMORRHAGE OF ANUS AND RECTUM SNOMED Code(s): 08963296 (3) Hypertension Current Visit: Yes Status: Acute Code(s): I10 - ESSENTIAL (PRIMARY) HYPERTEN ASHANTI SNOMED Code(s): 97461563 Plan: 1. Rectal bleed. Hgb stable, continue to monitor. General surgery consulted and plan for colonoscopy Saturday. If Hgb remains stable plan for dc tomorrow 2. Colitis. With LLQ tenderness. Question early diverticulitis. Continue rocephin and flagyl 3. HTN continue norvasc GI prophylaxis: protonix
[2019-03-07] MEDS ORDERED: ACETAMINOPHEN TAB 325 MG TAB PO PRN (20:14)
[2019-03-07] MEDS ORDERED: LATANOPROST 0.005% OPHTH DROPS 2.5 ML BTL BOTH EYES SCH (21:00)
[2019-03-08] MEDS: SODIUM CHLORIDE 0.9% 1,000 ML IV SCH ×3 (02:33→10:31)
[2019-03-08] MEDS: metroNIDAZOLE-NS PMX 500 MG in SALINE 1 100ML.BAG IVPB SCH ×3 (02:34→18:41)
[2019-03-08] MEDS: LEVOTHYROXINE 75 MCG TAB PO SCH (06:24)
[2019-03-08 09:11] LABS: HCT 42.1 % (34.0-46.0); HGB 13.5 gm/dL (11.4-16.0); MCV 93.5 fL (80.0-100.0); Mean Platelet Volume 8.1; Platelet Count 244 k/uL (150-450); RBC 4.51 m/uL (3.80-5.40); RDW 14.4 % (11.5-15.5); WBC 7.9 k/uL (3.8-10.6)
--- NOTE | 2019-03-08 10:11 | P.PN ---
Progress Note - Text Progress Note Date: 03/08/19 The patient developed some left-sided abdominal pain last night. She had a bowel movement yesterday. She denies any blood in her stool yesterday. On exam her vital signs are stable. Her abdomen soft. There is some mild left- sided tenderness. Patient will be scheduled for colonoscopy in the a.m. She'll perform bowel prep today.
[2019-03-08] MEDS: LATANOPROST 0.005% OPHTH DROPS 2.5 ML BTL BOTH EYES SCH (10:36)
[2019-03-08] MEDS: TIMOLOL 0.5% OPHTH DROPS 5 ML BTL BOTH EYES SCH (10:37)
[2019-03-08] MEDS: amLODIPine 2.5 MG TAB PO SCH (10:43)
[2019-03-08] MEDS: PANTOPRAZOLE 40 MG/10 ML VIAL IV SCH (10:43)
[2019-03-08] MEDS: METOPROLOL SUCCINATE (ER) 50 MG TAB.ER.24H PO SCH (10:43)
[2019-03-08] MEDS ORDERED: PEG 3350-NA SULF,BICARB,CL/KCL 4,000 ML BOTTLE PO ONE (12:00)
--- NOTE | 2019-03-08 15:47 | P.PN ---
Subjective Progress Note Date: 03/08/19 Jazmin Castellon is a 78 yo F with PMH significant for HTN, HLD, OA, GERD. She presented to [facility] ED after passing a multiple bloody bowel movements over the past 2 days. She states on noticed abdominal cramping and discomfort which persisted for about an hour, then passed loose bloody stool. She had another episode yesterday morning so came in to the ED. She denies loss of appetite, fever, chills, nausea or vomiting. No melena. Her bowel movements at baseline are every 1-2 days and regular. She last had colonoscopy in 2011 which was normal with the exception of diverticulosis. In the ED vitals stable, WBC 10, FOBT positive, CT abd/pelvis with nonspecific colitis of descending colon. Pt has had no further bloody stools since admission. 03/08. She tolerated her diet well yesterday and has had further BM without any cristina blood. She continues to complain of some L sided abdominal pain. Her WBC are down to 7 from 10 yesterday. Objective - Vital Signs Vital signs: Vital Signs Temp 97.5 F L 03/08/19 15:07 Pulse 60 03/08/19 15:07 Resp 16 03/08/19 15:07 BP 170/84 03/08/19 15:07 Pulse Ox 100 03/08/19 15:07 Intake & Output 03/07/19 03/08/19 03/08/19 18:59 06:59 18:59 Intake Total 1500 800 Output Total 1400 1100 1400 Balance 100 -1100 -600 Intake: Intake, IV Titration 750 Amount Sodium Chloride 0.9% 1, 650 000 ml @ 100 mls/hr IV . Q10H [facility] Rx#:[id number] metroNIDAZOLE-NS PMX 500 100 mg In Saline 1 100ml.bag @ 100 mls/hr IVPB Q8HR [facility] Rx#:[id number] Oral 750 800 Output: Urine 1400 1100 1400 Other: # Voids 2 1 # Bowel Movements 1 - Exam General: well developed, NAD CV: RRR, no murmur Lungs: clear throughout Abd: soft, LLQ tenderness Ext: no edema - Labs CBC & Chem 7: 03/08/19 08:54 03/06/19 20:41 Labs: Microbiology - Last 24 Hours (Table) 03/06/19 23:56 Blood Culture - Preliminary Blood No Growth after 24 hours Assessment and Plan (1) Acute colitis Current Visit: Yes Status: Acute Code(s): K52.9 - NONINFECTIVE GASTROENTERITIS AND COLITIS, UNSPECIFIED SNOMED Code(s): 84591269 (2) Rectal bleeding Current Visit: Yes Status: Acute Code(s): K62.5 - HEMORRHAGE OF ANUS AND RECTUM SNOMED Code(s): 62106503 (3) Hypertension Current Visit: Yes Status: Acute Code(s): I10 - ESSENTIAL (PRIMARY) HYPERTENSION SNOMED Code(s): 50567169 Plan: 1. Rectal bleed. Hgb stable, continue to monitor. General surgery consulted and plan for colonoscopy Saturday. Bowel prep today 2. Colitis. With LLQ tenderness. Continue rocephin and flagyl 3. HTN continue norvasc GI prophylaxis: protonix
[2019-03-09] MEDS: metroNIDAZOLE-NS PMX 500 MG in SALINE 1 100ML.BAG IVPB SCH ×2 (00:05→08:08)
[2019-03-09] MEDS: SODIUM CHLORIDE 0.9% 1,000 ML IV SCH ×2 (04:57→12:56)
[2019-03-09] MEDS: LEVOTHYROXINE 75 MCG TAB PO SCH (07:59)
[2019-03-09] MEDS: amLODIPine 2.5 MG TAB PO SCH (08:07)
[2019-03-09] MEDS: METOPROLOL SUCCINATE (ER) 50 MG TAB.ER.24H PO SCH (08:07)
[2019-03-09] MEDS: LATANOPROST 0.005% OPHTH DROPS 2.5 ML BTL BOTH EYES SCH (08:07)
[2019-03-09] MEDS: PANTOPRAZOLE 40 MG/10 ML VIAL IV SCH (08:08)
[2019-03-09] MEDS: TIMOLOL 0.5% OPHTH DROPS 5 ML BTL BOTH EYES SCH (08:08)
[2019-03-09] MEDS ORDERED: IV FLUID CONTINUATION 300 ML IV ONE (08:54)
[2019-03-09] MEDS ORDERED: PROPOFOL 10 MG/ML 20 ML VIAL IV ONE (08:58)
--- NOTE | 2019-03-09 09:14 | P.OP ---
Date of Procedure: 03/09/19 Preoperative Diagnosis: GI bleed Postoperative Diagnosis: Mild descending and sigmoid colon colitis Mild diverticulosis Procedure(s) Performed: Colonoscopy Anesthesia: MAC Surgeon: Shade Haywood Pathology: other (Descending, sigmoid colon) Condition: stable Disposition: PACU Description of Procedure: The patient's placed on the endoscopy table in the lateral position. She received IV sedation. Digital rectal exam was performed which revealed no abnormalities. The flexible colonoscope was then placed patient anus and passed throughout the entire colon. The descending and sigmoid colon were quite tortuous. The ileocecal valve was visualized. The cecum, ascending and transverse colon appeared normal. In the descending colon there is some mild inflammation. This area is biopsied. The scope was then brought back the sigmoid colon and there was some mild diverticular disease. There is also some minimal inflammation. A biopsies performed. The scope was then brought back the rectum and this appeared normal. Scope withdrawn for patient. There is no evidence of any active GI bleed. It was presumed that the patient had bleeding either from diverticulitis or her mild colitis.
[2019-03-09 10:13] VITALS: BP 117/72; PULSE 66; RESP 16; TEMP 97.7
--- NOTE | 2019-03-09 11:11 | P.DS ---
Providers Date of admission: 03/06/19 23:24 Expected date of discharge: 03/09/19 Attending physician: Ilir Saunders MD Consults: 03/06/19 23:25 Consult Physician Urgent Consulting Provider: Shade Haywood Consult Reason/Comments: acute gi bleed Do you want consulting provider notified?: Yes Primary care physician: Joyce Gramajo Hospital Course: (1) Acute colitis Current Visit: Yes Status: Acute Code(s): K52.9 - NONINFECTIVE GASTROENTERITIS AND COLITIS, UNSPECIFIED SNOMED Code(s): 32918584 (2) Rectal bleeding Current Visit: Yes Status: Acute Code(s): K62.5 - HEMORRHAGE OF ANUS AND RECTUM SNOMED Code(s): 39491072 (3) Hypertension Current Visit: Hospital course:Jazmin Castellon is a 78 yo F with PMH significant for HTN, HLD, OA, GERD. She presented to [facility] ED after passing a multiple bloody bowel movements over the past 2 days. She states on noticed abdominal cramping and discomfort which persisted for about an hour, then passed loose bloody stool. She had another episode yesterday morning so came in to the ED. She denies loss of appetite, fever, chills, nausea or vomiting. No melena. Her bowel movements at baseline are every 1-2 days and regular. She last had colonoscopy in 2011 which was normal with the exception of diverticulosis. In the ED vitals stable, WBC 10, FOBT positive, CT abd/pelvis with nonspecific colitis of descending colon. Pt has had no further bloody stools since admission. 03/08. She tolerated her diet well yesterday and has had further BM without any cristina blood. She continues to complain of some L sided abdominal pain. Her WBC are down to 7 from 10 yesterday. 03/09/2019 completed colonoscopy, reporting mild descending and sigmoid colon c olitis, mild diverticulosis, no evidence of active GI bleed. Biopsies obtained. Tolerated procedure well. Cleared by surgery for discharge. Patient will be sent home on Augmentin and Flagyl for 4 more days to complete a total of 7 days of therapy. Patient is being discharged home in a stable condition with guarded prognosis. - Exam General: well developed, NAD CV: RRR, no murmur Lungs: clear throughout Abd: soft, mild LLQ tenderness Ext: no edema The impression and plan of care has been dictated as directed. : I performed a history and examination of this patient, discussed the same with the dictator. I agree with the dictator's note ,documented as a scribe. Any additional findings or plans will be noted. Time taken: 35 minutes Patient Condition at Discharge: Stable Plan - Discharge Summary Discharge Rx Participant: No New Discharge Prescriptions: New Pantoprazole Sodium [Protonix] 40 mg PO DAILY #30 tablet. metroNIDAZOLE [Flagyl] 500 mg PO Q8HR #12 tab Amoxic-Pot Clav 875-125Mg [Augmentin 875-125] 1 tab PO BID 4 Days #8 tab Continue Latanoprost [Xalatan 0.005%] 1 drop BOTH EYES HS amLODIPine [Norvasc] 2.5 mg PO DAILY Pravastatin Sodium [Pravachol] 40 mg PO MOWEFR Metoprolol Succinate (ER) [Toprol XL] 50 mg PO DAILY Levothyroxine Sodium [Synthroid] 75 mcg PO QAM Multivitamins, Thera [Multivitamin (formulary)] 1 tab PO DAILY Calcium Citrate/Vitamin D3 [Calcitrate + Vit D Caplet] 1 tab PO DAILY Timolol 0.5% Ophth Soln [Timoptic 0.5% Ophth Soln] 1 drop BOTH EYES DAILY Aspirin EC [Ecotrin Low Dose] 81 mg PO DAILY #0 Discharge Medication List Calcium Citrate/Vitamin D3 [Calcitrate + Vit D Caplet] 1 tab PO DAILY 08/14/18 [History] Latanoprost [Xalatan 0.005%] 1 drop BOTH EYES HS 08/14/18 [History] Levothyroxine Sodium [Synthroid] 75 mcg PO QAM 08/14/18 [History] Metoprolol Succinate (ER) [Toprol XL] 50 mg PO DAILY 08/14/18 [History] Multivitamins, Thera [Multivitamin (formulary)] 1 tab PO DAILY 08/14/18 [History] Pravastatin Sodium [Pravachol] 40 mg PO MOWEFR 08/14/18 [History] amLODIPine [Norvasc] 2.5 mg PO DAILY 08/14/18 [History] Timolol 0.5% Ophth Soln [Timoptic 0.5% Ophth Soln] 1 drop BOTH EYES DAILY 03/06/19 [History] Amoxic-Pot Clav 875-125Mg [Augmentin 875-125] 1 tab PO BID 4 Days #8 tab 03/09/19 [Rx] Aspirin EC [Ecotrin Low Dose] 81 mg PO DAILY #0 03/09/19 [Rx] Pantoprazole Sodium [Protonix] 40 mg PO DAILY #30 tablet. 03/09/19 [Rx] metroNIDAZOLE [Flagyl] 500 mg PO Q8HR #12 tab 03/09/19 [Rx] Follow up Appointment(s)/Referral(s): Joyce Gramajo DO [Primary Care Provider] - 3 Days Ambulatory/Diagnostic Orders: Complete Blood Count w/diff [LAB.AMB] Time Frame: 3 Days, Location: None Selected Activity/Diet/Wound Care/Special Instructions: Diet: low fiber Activity: Limited until follow up
[2019-03-10] MEDS ORDERED: metroNIDAZOLE 500 MG TAB PO SCH
[2019-03-10] MEDS ORDERED: PANTOPRAZOLE 40 MG TABLET PO SCH (09:00)
== END 2019-03-09 15:17 | disposition home or self-care (01) | DRG 392 ==
LOC: EC 19:35 → 4SSUR 23:24
PROVIDERS: ADMIT Family Medicine; ATTEND Family Medicine
PROC: 0DBN8ZX Excision of Sigmoid Colon, Via Natural or Artificial Opening Endoscopic, Diagnostic (ICD-10-PCS; 2019-03-09)
PROC: 0DBM8ZX Excision of Descending Colon, Via Natural or Artificial Opening Endoscopic, Diagnostic (ICD-10-PCS; principal; 2019-03-09 08:15)
DX: K52.9 Noninfective gastroenteritis and colitis, unspecified (principal); K57.30 Diverticulosis of large intestine without perforation or abscess without bleeding; E78.5 Hyperlipidemia, unspecified; H40.9 Unspecified glaucoma; I10 Essential (primary) hypertension; K21.9 Gastro-esophageal reflux disease without esophagitis; Z79.82 Long term (current) use of aspirin; Z79.890 Hormone replacement therapy; Z79.899 Other long term (current) drug therapy; Z96.651 Presence of right artificial knee joint; E07.9 Disorder of thyroid, unspecified; Z98.42 Cataract extraction status, left eye; Z98.41 Cataract extraction status, right eye; I25.10 Atherosclerotic heart disease of native coronary artery without angina pectoris; Z95.5 Presence of coronary angioplasty implant and graft; K44.9 Diaphragmatic hernia without obstruction or gangrene
CPT/HCPCS: 36415; 45380; 74177; 80053; 81001; 82272; 83605; 83690; 83735; 85025; 85027; 85610; 85730; 86850; 86900; 86901; 87040; 88305; 88342; 96365; 96375; 99285

== ENCOUNTER → 2021-05-19 | Outpatient (CLI) | payer MEDICARE, BC ==
[2021-05-19 19:06] LABS: Chol/HDL Ratio 3.41 Ratio; HDL Cholesterol 41.7 mg/dL (40.00-60.00); LDL Cholesterol,Calculated 60.9 mg/dL (0.0-131.0); VLDL Calculation 39.4 mg/dL (5.00-40.00)
== END | disposition home or self-care (01) ==
LOC: LABWHC1 09:14
PROVIDERS: ATTEND Internal Medicine Cardiovascular Disease
DX: E78.2 Mixed hyperlipidemia (principal)
CPT/HCPCS: 36415; 80061; 84450; 84460

== ENCOUNTER → 2023-11-12 | Outpatient (CLI) | payer MEDICARE, BC ==
[2023-11-12 16:30] LABS: ALT 14 U/L (8-44); AST 26 U/L (13-35); LDL Cholesterol,Calculated 64.8 mg/dL (0.0-131.0)
== END | disposition home or self-care (01) ==
LOC: LABWHC1 08:29
PROVIDERS: ATTEND Internal Medicine Cardiovascular Disease
DX: E78.2 Mixed hyperlipidemia (principal)
CPT/HCPCS: 36415; 80061; 84450; 84460

== ENCOUNTER → 2024-12-14 | Outpatient (CLI) | payer MEDICARE ==
[2024-12-14 15:32] LABS: ALT 15 U/L (8-44); AST 30 U/L (13-35); Chol/HDL Ratio 2.92 Ratio; LDL Cholesterol,Calculated 70.7 mg/dL (0.0-131.0)
== END | disposition home or self-care (01) ==
LOC: LABWHC1 08:41
PROVIDERS: ATTEND Internal Medicine Cardiovascular Disease
DX: E78.2 Mixed hyperlipidemia (principal)
CPT/HCPCS: 36415; 80061; 84450; 84460